=== PATIENT | male | born 1940 | race Caucasian/White ===

== ENCOUNTER 2018-08-28 17:14 | Inpatient (IN) | payer MEDICARE, BC ==
[2018-08-28] MEDS ORDERED: Sodium Chloride 0.9% 100 ML ONE (18:25)
[2018-08-28] MEDS ORDERED: Azithromycin 500 MG VIAL ONE (18:25)
[2018-08-28] MEDS ORDERED: cefTRIAXone\\ROCEPHIN 1 GM VIAL ONE (18:25)
[2018-08-28] MEDS: Sodium Chloride 0.9% 1,000 ML IV SCH (19:30)
[2018-08-28] MEDS ORDERED: Acetaminophen 325 MG TAB PO PRN (19:38)
[2018-08-28] MEDS ORDERED: Ondansetron ODT 4 MG TAB SL PRN (19:38)
[2018-08-28] MEDS ORDERED: Ondansetron PF 4 MG/2 ML Vial IVP PRN (19:38)
[2018-08-28 20:06] VITALS: BMI 28.8
[2018-08-28] MEDS ORDERED: Zolpidem Tartrate 5 MG TAB PO PRN (21:38)
[2018-08-28] MEDS ORDERED: Guaifenesin DM 100-10/5 ML UDCUP PO PRN (21:38)
[2018-08-28] MEDS ORDERED: HumaLOG 300 UNITS/3 ML VIAL SC PRN ×2 (21:46)
[2018-08-28] MEDS ORDERED: Dextrose 50% Abboject 50 ML SYRINGE SLOW IVP PRN (21:46)
[2018-08-28] MEDS ORDERED: Dextrose 5% in Water 1,000 ML IV PRN (21:46)
--- NOTE | 2018-08-28 21:54 | PDOC.EVN ---
Event Note - Event Note Event Note: H&P [id number]
--- NOTE | 2018-08-28 22:20 | HP ---
ADMITTING COMPLAINT: Cough. HISTORY OF PRESENT ILLNESS: This is a 78-year-old male, who was seen at an outside facility and transferred here to [facility] for further management and care. The patient presented to the other facility with complaints of gradual onset of cough and shortness of breath. The patient states that he had the symptoms for about 2 to 3 days. Noted that he also felt warm; however, did not have any fevers at home. The patient in the other hospital had a high temperature of 98.6 only. No range high on fevers. The patient otherwise denied any associated symptoms. No alleviating or aggravating factors noted. The patient was seen and examined. All questions answered. REVIEW OF SYSTEMS: Pertinent positives in HPI, otherwise negative. PAST MEDICAL HISTORY: Positive for coronary artery disease, hyperlipidemia, hypertension as well as hyperglycemia. The patient states that he is not aware of any surgical history. However, reviewing records, he has had a CABG. HOME MEDICATIONS: See MAR. ALLERGIES: NO KNOWN DRUG ALLERGIES. FAMILY HISTORY: Positive for diabetes and hypertension. SOCIAL HISTORY: Nondrinker and nonsmoker. PHYSICAL EXAMINATION: VITAL SIGNS: Blood pressure 117/49, pulse 92, respiratory rate of 24, O2 saturation 93% on room air. GENERAL: The patient is lying in bed. No acute discomfort. HEENT: Pupils are equal, round, and reactive to light and accommodation. Oral cavity appears dry. Poor dentition. NECK: Supple, mobile, nontender. Thyroid appreciated. RESPIRATORY: Clear to auscultation bilaterally. Left lower lobe breath sounds appear coarse, but otherwise rest of the lungs sound okay. CARDIOVASCULAR: Sinus tachycardia. S1, S2. Systolic ejection murmur appreciated. ABDOMEN: Positive bowel sounds. Soft, nontender, nondistended. EXTREMITIES: Trace edema. 2+ peripheral pulses. No cyanosis or clubbing noted. NEUROLOGIC: Cranial nerves 2 through 12 intact. Alert and oriented x3. LABORATORY DATA: CBC reviewed. BMP reviewed. CT and chest x-ray reviewed. ASSESSMENT: 1. Left lower quadrant pneumonia. 2. Leukocytosis. 3. Sepsis. 4. Lactic acidosis. 5. Hyperglycemia. 6. Transaminitis. 7. History of coronary artery disease. 8. Hypertension. 9. Diabetes. 10. Proteinuria. 11. Hyperlipidemia. PLAN: 1. At this point in time, we will admit the patient to Internal Medicine Team. Place the patient on Rocephin and azithromycin. We will obtain an echocardiogram. We will do IV fluids for now given hypotension. No signs of volume overload noted. If the patient does become volume overloaded, we will discontinue IV fluids or if the ejection fraction is low, we will discontinue IV fluids. Once the patient is eating, drinking, little bit more stable, IV fluids can be discontinued. 2. Blood cultures ordered and pending. 3. Repeat labs for tomorrow, includes CBC, BMP, liver function test as well as lactic acid panel and liver markers. 4. Sliding scale for diabetes. We will check A1c. 5. Continue home medications when med reconciliation done. In the meantime, we will start the patient on aspirin and Plavix. Hold blood pressure medications for now. Further changes in plans to be done as the patient's condition progresses. Case and plan discussed with the patient at length. He understood and agreed with this plan. He wishes to remain a full code. Job ID: [id number]
[2018-08-29] MEDS: Sodium Chloride 0.9% 1,000 ML IV SCH ×2 (02:00→11:23)
[2018-08-29 06:32] LABS: #Eosinphils 0.1 thou/uL (0.0-0.7); #Neutrophils 6.3 thou/uL (1.40-6.50); %Basophils 0.4 % (0.0-1.0); %Eosinophils 0.9 % (0.0-10.0); %Lymphocytes 11.6 % (21.0-51.0); %Monocytes 12.1 % (0.0-10.0); Hemoglobin 12.8 g/dL (14.0-18.0); Mean Corpuscular HGB CONC 33.7 g/dL (32.0-36.0); Mean Corpuscular Hemoglobin 31.5 pg (27.0-31.0); Mean Corpuscular Volume 93.4 fL (78.0-98.0); Mean Platelet Volume 7.6 fL (7.4-10.4); Platelet Count 148 thou/uL (130-400); RBC Distribution Width 12.8 % (11.5-14.5); Red Blood Cell (RBC) Count 4.08 mill/uL (4.70-6.10); White Blood Cell (WBC) Count 8.4 thou/uL (4.8-10.8)
[2018-08-29 06:39] LABS: Hemoglobin A1c 4.6 % (4.0-6.0)
[2018-08-29 06:52] LABS: ALT (SGPT) 49 U/L (8-55); AST (SGOT) 240 U/L (5-34); Alkaline Phosphatase 66 U/L (40-150); Bilirubin, Direct 0.3 mg/dL (0.1-0.3); Bilirubin, Total 0.6 mg/dL (0.2-1.2); Protein, Total 5.8 g/dL (5.8-8.1)
[2018-08-29 06:53] LABS: Anion Gap 10 mmol/L (10-20); BUN (Urea Nitrogen) 11 mg/dL (8.4-25.7); Calc. Creatinine Clearance 102 mL/min (70-130); Calcium 7.9 mg/dL (7.8-10.44); Carbon Dioxide 24 mmol/L (23-31); Chloride 107 mmol/L (98-107); Estimated GFR-MDRD Greater than 90; Glucose 85 mg/dL (83-110); Potassium 3.3 mmol/L (3.5-5.1); Sodium 138 mmol/L (136-145)
[2018-08-29] MEDS ORDERED: Prevnar 13-Val Conj/PF 0.5 ML SYRINGE IM ONE (09:00)
--- NOTE | 2018-08-29 13:11 | PDOC.EVN ---
Event Note - Event Note Event Note: ACP NOTE- pt admitted overnight.chart reviewed.Pt seen and examined and was able to tell me his name,where he is ,about his family and seems to be AAO X3. discussed his diagnosis and possible disease trajectory.he verbalized understanding discussed code status as none on chart he want to "stay alive as long as he can". Wants everything done as listed by me for resuscitation purposes .He has not appointemnted anyone i nhis family as his MPOA but reports that he has no children and but has 4 nephewes who take good care of him. he would like to appoint one of them <probably one named Jurgen after himself,as MPOA.he understands that his prognosis is fair and he would require few days of IV Abx and hence,hospital stay. Full code order enetered in [place]>will consult PCT for MPOA paper work. TOTAL TIME SPENT IN ACP DISCUSSION 17 MINUTES.
--- NOTE | 2018-08-29 14:36 | PDOC.PN ---
- Subjective Encounter Start Date: 08/29/18 Encounter Start Time: 14:34 Subjective: feels well. denies any chest pain/SOB. -: no fever/chills/cough - Objective Resuscitation Status - Order Detail: 08/29/18 11:15 Resuscitation Status Routine Resuscitation Status: FULL: Full Resuscitation Discussed with: discussed with pt in detail.see note MAR Reviewed: Yes Vital Signs & Weight: Vital Signs (12 hours) Temp Pulse Resp BP Pulse Ox 08/29/18 12:00 98.5 F 78 20 133/72 92 L 08/29/18 08:03 92 L 08/29/18 07:47 98.5 F 78 20 132/72 92 L 08/29/18 04:06 97.6 F 77 20 117/65 95 Weight Weight 195 lb 1.6 oz I&O: 08/28/18 08/29/18 08/30/18 06:59 06:59 06:59 Intake Total 1850 Balance 1850 Result Diagrams: 08/29/18 05:30 08/29/18 05:30 Additional Labs: Accuchecks 08/29/18 08/29/18 08/28/18 11:46 04:08 20:11 POC Glucose 91 89 112 H Microbiology 08/28/18 14:09 Stool - Pending Stool Occult Blood (ANNA) - Final 08/28/18 14:09 Gastric - Pending Gastric Occult Blood - Final 08/28/18 22:23 Venous blood - Right Arm Blood Culture - Preliminary Specimen has been received and culture in progress. No Growth to date. 08/28/18 22:11 Venous blood - Left Hand Blood Culture - Preliminary Specimen has been received and culture in progress. No Growth to date. Laboratory Tests 08/28/18 08/28/18 08/28/18 14:09 14:09 14:09 WBC 13.9 H Lactic Acid 3.5 H Troponin I 0.028 08/29/18 05:30 WBC 8.4 Lactic Acid Troponin I Phys Exam - Physical Examination Constitutional: NAD poor hygeine, HEENT: PERRLA, moist MMs, sclera anicteric, oral pharynx no lesions Neck: no nodes, no JVD, supple, full ROM Respiratory: no wheezing, no rales, no rhonchi, clear to auscultation bilateral Cardiovascular: RRR, no significant murmur CABG scar Gastrointestinal: soft, non-tender, no distention, positive bowel sounds Musculoskeletal: no edema, pulses present Neurological: non-focal, normal sensation, moves all 4 limbs Psychiatric: normal affect, A&O x 3 Dx/Plan (1) PNA (pneumonia) Code(s): J18.9 - PNEUMONIA, UNSPECIFIED ORGANISM Status: Acute (2) Sepsis Code(s): A41.9 - SEPSIS, UNSPECIFIED ORGANISM Status: Acute (3) Hypokalemia Code(s): E87.6 - HYPOKALEMIA Status: Acute Comment: replace and recheck (4) CAD (coronary artery disease) Code(s): I25.10 - ATHSCL HEART DISEASE OF [place] CORONARY ARTERY W/O ANG PCTRS Status: Chronic - Plan continue antibiotics, DVT proph w/SCDs cont ABx,nebs,supportive care.clinically better.Incentive spirometry -: leucocytosis improved.check Viral PCR by NAAT -: will add OT,PT.try to reconcile home meds -: Hd stable. -: am labs.ECHO pending * . Review of Systems - Review of Systems Constitutional: negative: fever, chills, sweats, weakness, malaise, other ENT: negative: Ear Pain, Ear Discharge, Nose Pain, Nose Discharge, Nose Congestion, Mouth Pain, Mouth Swelling, Throat Pain, Throat Swelling, Other Respiratory: negative: Cough, Dry, Shortness of Breath, Hemoptysis, SOB with Excertion, Pleuritic Pain, Sputum, Wheezing Cardiovascular: negative: chest pain, palpitations, orthopnea, paroxysmal nocturnal dyspnea, edema, light headedness, other Gastrointestinal: negative: Nausea, Vomiting, Abdominal Pain, Diarrhea, Constipation, Melena, Hematochezia, Other Genitourinary: negative: Dysuria, Frequency, Incontinence, Hematuria, Retention , Other Neurological: negative: Weakness, Numbness, Incoordination, Change in Speech, Confusion, Seizures, Other - Medications/Allergies Allergies/Adverse Reactions: Allergies Allergy/AdvReac Type Severity Reaction Status Date / Time No Known Drug Allergies Allergy Verified 08/29/18 13:20 Medications: Current Medications Dextrose/Water (Dextrose 50%) 25 gm SLOW IVP PRN PRN PRN Reason: Hypoglycemia Glucagon (Glucagon) 1 mg IM PRN PRN PRN Reason: Hypoglycemia Guaifenesin/Dextromethorphan (Robitussin Dm) 15 ml PO Q4H PRN PRN Reason: Cough Azithromycin 500 mg/ Sodium (Chloride) 250 mls @ 250 mls/hr IVPB Q24HR [facility] Ceftriaxone Sodium 1 gm/ (Sodium Chloride) 100 mls @ 200 mls/hr IVPB Q24HR [facility] Dextrose/Water (D5w) 1,000 mls @ 0 mls/hr IV .Q0M PRN PRN Reason: Hypoglycemia Sodium Chloride (Normal Saline 0.9%) 1,000 mls @ 50 mls/hr IV .Q20H [facility] Last Admin: 08/29/18 11:23 Dose: 1,000 mls Insulin Human Lispro (Humalog) 0 units SC .MILD SLIDING SCALE PRN PRN Reason: Mild Correctional Scale Insulin Human Lispro (Humalog) 0 units SC .BEDTIME SLIDING SC PRN PRN Reason: Bedtime Correctional Scale Sodium Chloride (Flush - Normal Saline) 10 ml IVF Q12HR [facility] Last Admin: 08/29/18 08:10 Dose: Not Given Sodium Chloride (Flush - Normal Saline) 10 ml IVF PRN PRN PRN Reason: Saline Flush Zolpidem Tartrate (Ambien) 5 mg PO HSPRN PRN PRN Reason: Insomnia
[2018-08-29] MEDS ORDERED: cefTRIAXone\\ROCEPHIN 1 GM in Sodium Chloride 0.9% 100 ML IVPB SCH (18:00)
[2018-08-29] MEDS ORDERED: Azithromycin 500 MG in Sodium Chloride 0.9% 250 ML 250 ML IVPB SCH (20:00)
[2018-08-29] MEDS: Vancomycin HCl 1.25 GM in Sodium Chloride 0.9% 250 ML 250 ML IVPB SCH (21:57)
[2018-08-30 07:42] LABS: #Eosinphils 0.1 thou/uL (0.0-0.7); #Lymphocytes 0.9 thou/uL (1.20-3.40); #Neutrophils 9.1 thou/uL (1.40-6.50); %Eosinophils 0.8 % (0.0-10.0); %Lymphocytes 7.9 % (21.0-51.0); %Monocytes 8.8 % (0.0-10.0); %Neutrophils 82.6 % (42.0-75.0); Hemoglobin 12.7 g/dL (14.0-18.0); Mean Corpuscular HGB CONC 34.2 g/dL (32.0-36.0); Mean Corpuscular Hemoglobin 31.1 pg (27.0-31.0); Mean Platelet Volume 7.5 fL (7.4-10.4); Platelet Count 143 thou/uL (130-400); RBC Distribution Width 12.6 % (11.5-14.5); Red Blood Cell (RBC) Count 4.07 mill/uL (4.70-6.10)
[2018-08-30 08:01] LABS: Anion Gap 10 mmol/L (10-20); BUN (Urea Nitrogen) 8 mg/dL (8.4-25.7); Calc. Creatinine Clearance 117 mL/min (70-130); Calcium 8.2 mg/dL (7.8-10.44); Carbon Dioxide 23 mmol/L (23-31); Chloride 102 mmol/L (98-107); Estimated GFR-MDRD Greater than 90; Glucose 94 mg/dL (83-110); Potassium 3.3 mmol/L (3.5-5.1); Sodium 132 mmol/L (136-145)
[2018-08-30] MEDS: Vancomycin HCl 1.25 GM in Sodium Chloride 0.9% 250 ML 250 ML IVPB SCH ×2 (08:24→20:43)
[2018-08-30] MEDS: Sodium Chloride 0.9% 1,000 ML IV SCH ×2 (08:25→13:30)
[2018-08-30 08:55] LABS: Magnesium 1.5 mg/dL (1.6-2.6)
[2018-08-30 09:05] LABS: Phosphorus 1.7 mg/dL (2.3-4.7)
[2018-08-30] MEDS ORDERED: Magnesium Sulfate 2 GM in Sodium Chloride 0.9% 100 ML IVPB SCH (09:30)
[2018-08-30] MEDS ORDERED: Magnesium 2 GM/50 ML 2 GM in Premix Bag 1 BAG IVPB SCH (09:45)
--- NOTE | 2018-08-30 10:47 | RAD ---
EXAM: Single view of the chest COMPARISON: None FINDINGS: Single view of the chest shows an enlarged cardiomediastinal silhouette. The patient is sta tus post sternotomy. Increased interstitial lung markings are present. There are questionable superim posed airspace opacities projecting over both lower lobes. Degenerative changes are seen in the spine . IMPRESSION: Bilateral lower lobe atelectasis versus infiltrates
[2018-08-30] MEDS: K-Phos Neutral 250 MG TAB PO SCH ×2 (12:13→17:44)
[2018-08-30] MEDS ORDERED: Loperamide HCl 2 MG CAP PO PRN (17:31)
[2018-08-30] MEDS ORDERED: Loratadine 10 MG TAB PO PRN (17:31)
[2018-08-30] MEDS ORDERED: Saccharomyces boulardii 250 MG CAP PO SCH (17:45)
--- NOTE | 2018-08-30 22:03 | PDOC.PN ---
- Subjective Encounter Start Date: 08/30/18 Encounter Start Time: 10:45 Patient seen and examined for Sepsis/Pneumonia. Feels somewhat better. No new complaints. No overnight events - Objective Resuscitation Status - Order Detail: 08/29/18 11:15 Resuscitation Status Routine Resuscitation Status: FULL: Full Resuscitation Discussed with: discussed with pt in detail.see note MAR Reviewed: Yes Vital Signs & Weight: Vital Signs (12 hours) Temp Pulse Resp BP Pulse Ox 08/30/18 18:58 98.7 F 77 20 102/68 92 L 08/30/18 16:00 98.1 F 78 20 142/76 H 91 L 08/30/18 12:54 98.4 F 71 24 H 137/71 94 L Weight Weight 195 lb 1.6 oz I&O: 08/29/18 08/30/18 08/31/18 06:59 06:59 06:59 Intake Total 1850 3025 Output Total 2600 950 Balance 1850 425 -950 Result Diagrams: 08/30/18 07:24 08/30/18 07:24 Additional Labs: Accuchecks 08/30/18 08/30/18 11:49 04:27 POC Glucose 115 H 86 Phys Exam - Physical Examination Constitutional: NAD Respiratory: no wheezing Bibasilar rales/rhonchi Cardiovascular: RRR, no rub Gastrointestinal: soft, non-tender, positive bowel sounds Musculoskeletal: no edema Dx/Plan - Plan plan discussed w/ family, PT/OT, speech therapy, out of bed/ambulate, DVT proph w/SCDs 1. Sepsis due to B/L Pneumonia ?Aspiration 2. Electrolyte abn (Hyponatremia/Hypokalemia/Hypomagnesmia/hypophosphatemia) 3. CAD 4. HTN/HLD 5. Physical deconditioning PLAN: Replace electrolytes DC Levaquin/Vancomyin Start Zosyn Cont other meds as below Microbiology 08/28/18 22:11 Venous blood - Left Hand Blood Culture - Preliminary Coagulase Neg Staphylococcus 08/28/18 15:25 Venous blood - Left Hand Blood Culture - Preliminary Coagulase Neg Staphylococcus Laboratory Tests 08/30/18 08/30/18 07:24 07:24 Sodium 132 L Potassium 3.3 L Phosphorus 1.7 L Magnesium 1.5 L Review of Systems - Review of Systems Respiratory: Cough, Dry Cardiovascular: negative: chest pain, palpitations, orthopnea, paroxysmal nocturnal dyspnea, edema, light headedness, other Gastrointestinal: negative: Nausea, Vomiting, Abdominal Pain, Diarrhea, Constipation, Melena, Hematochezia, Other - Medications/Allergies Allergies/Adverse Reactions: Allergies Allergy/AdvReac Type Severity Reaction Status Date / Time No Known Drug Allergies Allergy Verified 08/29/18 13:20 Medications: Current Medications Albuterol/Ipratropium (Duoneb) 3 ml NEB [id number] PRN PRN Reason: SOB &/or Wheezing Dextrose/Water (Dextrose 50%) 25 gm SLOW IVP PRN PRN PRN Reason: Hypoglycemia Glucagon (Glucagon) 1 mg IM PRN PRN PRN Reason: Hypoglycemia Guaifenesin/Dextromethorphan (Robitussin Dm) 15 ml PO Q4H PRN PRN Reason: Cough Dextrose/Water (D5w) 1,000 mls @ 0 mls/hr IV .Q0M PRN PRN Reason: Hypoglycemia Levofloxacin 500 mg/ Device 100 mls @ 100 mls/hr IVPB Q24HR [facility] Last Admin: 08/30/18 05:25 Dose: 100 mls Vancomycin HCl 1.25 gm/ Sodium (Chloride) 250 mls @ 166.667 mls/hr IVPB Q12HR [facility] Last Admin: 08/30/18 20:43 Dose: 250 mls Sodium Chloride (Normal Saline 0.9%) 1,000 mls @ 30 mls/hr IV .Q24H [facility] Last Admin: 08/30/18 13:30 Dose: 1,000 mls Loperamide HCl (Imodium) 2 mg PO PRN PRN PRN Reason: Diarrhea/Loose Stools Loratadine (Claritin) 10 mg PO DAILYPRN PRN PRN Reason: Sinus Symptoms Miscellaneous Medication (Pharmacy To Dose) 1 each IVPB PRN PRN PRN Reason: Pharmacy to dose Phosphorus (Kphos Neutral) 250 mg PO TID-[facility] Last Admin: 08/30/18 17:44 Dose: 250 mg Saccharomyces Boulardii (Florastor) 250 mg PO DAILY [facility] Sodium Chloride (Flush - Normal Saline) 10 ml IVF Q12HR [facility] Last Admin: 08/30/18 20:44 Dose: Not Given Sodium Chloride (Flush - Normal Saline) 10 ml IVF PRN PRN PRN Reason: Saline Flush
[2018-08-30] MEDS: Piperacillin/Tazobactam 3.375 GM in Sodium Chloride 0.9% 100 ML IVPB SCH (23:18)
[2018-08-31 05:00] LABS: #Eosinphils 0.3 thou/uL (0.0-0.7); #Lymphocytes 1.1 thou/uL (1.20-3.40); #Neutrophils 8.9 thou/uL (1.40-6.50); %Eosinophils 2.5 % (0.0-10.0); %Lymphocytes 9.9 % (21.0-51.0); %Monocytes 9.1 % (0.0-10.0); %Neutrophils 78.5 % (42.0-75.0); Hemoglobin 13.5 g/dL (14.0-18.0); Mean Corpuscular HGB CONC 34.7 g/dL (32.0-36.0); Mean Corpuscular Hemoglobin 31.5 pg (27.0-31.0); Mean Corpuscular Volume 90.9 fL (78.0-98.0); Mean Platelet Volume 7.6 fL (7.4-10.4); Platelet Count 155 thou/uL (130-400); RBC Distribution Width 12.3 % (11.5-14.5); Red Blood Cell (RBC) Count 4.27 mill/uL (4.70-6.10); White Blood Cell (WBC) Count 11.3 thou/uL (4.8-10.8)
[2018-08-31] MEDS: Piperacillin/Tazobactam 3.375 GM in Sodium Chloride 0.9% 100 ML IVPB SCH ×4 (05:09→21:14)
[2018-08-31 05:24] LABS: ALT (SGPT) 44 U/L (8-55); AST (SGOT) 127 U/L (5-34); Alkaline Phosphatase 70 U/L (40-150); Anion Gap 13 mmol/L (10-20); BUN (Urea Nitrogen) 7 mg/dL (8.4-25.7); Bilirubin, Total 1.5 mg/dL (0.2-1.2); Calc. Creatinine Clearance 98 mL/min (70-130); Calcium 8.3 mg/dL (7.8-10.44); Carbon Dioxide 26 mmol/L (23-31); Chloride 97 mmol/L (98-107); Estimated GFR-MDRD Greater than 90; Globulin 3.7 g/dL (2.4-3.5); Glucose 94 mg/dL (83-110); Magnesium 2.3 mg/dL (1.6-2.6); Phosphorus 2.3 mg/dL (2.3-4.7); Potassium 3.4 mmol/L (3.5-5.1); Protein, Total 6.7 g/dL (5.8-8.1); Sodium 133 mmol/L (136-145)
[2018-08-31] MEDS: K-Phos Neutral 250 MG TAB PO SCH ×3 (07:55→16:30)
[2018-08-31] MEDS: Saccharomyces boulardii 250 MG CAP PO SCH (07:56)
[2018-08-31] MEDS: Sodium Chloride 0.9% 1,000 ML IV SCH (11:06)
[2018-08-31] MEDS ORDERED: Ondansetron ODT 4 MG TAB PO PRN (20:24)
[2018-08-31] MEDS ORDERED: Acetaminophen 500 MG TAB PO PRN ×2 (20:24→20:27)
[2018-08-31] MEDS ORDERED: Ondansetron PF 4 MG/2 ML Vial IVP PRN (20:24)
--- NOTE | 2018-08-31 21:58 | PDOC.PN ---
- Subjective Encounter Start Date: 08/31/18 Encounter Start Time: 12:30 Patient seen and examined for Sepsis. Feels gen weak. No new complaints. No overnight events - Objective Resuscitation Status - Order Detail: 08/29/18 11:15 Resuscitation Status Routine Resuscitation Status: FULL: Full Resuscitation Discussed with: discussed with pt in detail.see note MAR Reviewed: Yes Vital Signs & Weight: Vital Signs (12 hours) Temp Pulse Resp BP Pulse Ox 08/31/18 19:50 100.5 F H 76 18 138/80 93 L Weight Weight 195 lb 1.6 oz I&O: 08/30/18 08/31/18 09/01/18 06:59 06:59 06:59 Intake Total 3025 1000 660 Output Total 2600 1900 950 Balance 488 -642 -336 Result Diagrams: 08/31/18 04:34 08/31/18 04:34 Phys Exam - Physical Examination Constitutional: NAD Respiratory: no wheezing Bibasilar rales Cardiovascular: RRR, no rub Gastrointestinal: soft, non-tender, positive bowel sounds Musculoskeletal: no edema Neurological: non-focal, moves all 4 limbs Dx/Plan - Plan DVT proph w/SCDs 1. Gen weaknessSepsis due to B/L Pneumonia ?Aspiration 2. Electrolyte abn (Hyponatremia/Hypokalemia/Hypomagnesmia/hypophosphatemia) 3. CAD 4. HTN/HLD 5. Physical deconditioning PLAN: AM labs Add Doxycycline Cont Zosyn Cont IVF at KVO Start Zosyn Cont other meds as below SNF Eval Review of Systems - Review of Systems Respiratory: Cough, Dry. negative: Shortness of Breath, Hemoptysis, SOB with Excertion, Pleuritic Pain, Sputum, Wheezing Cardiovascular: negative: chest pain, palpitations, orthopnea, paroxysmal nocturnal dyspnea, edema, light headedness, other - Medications/Allergies Allergies/Adverse Reactions: Allergies Allergy/AdvReac Type Severity Reaction Status Date / Time No Known Drug Allergies Allergy Verified 08/29/18 13:20 Medications: Current Medications Acetaminophen (Tylenol) 500 mg PO Q6H PRN PRN Reason: Fever > 101 Last Admin: 08/31/18 21:14 Dose: 500 mg Albuterol/Ipratropium (Duoneb) 3 ml NEB [id number] PRN PRN Reason: SOB &/or Wheezing Dextrose/Water (Dextrose 50%) 25 gm SLOW IVP PRN PRN PRN Reason: Hypoglycemia Doxycycline Hyclate (Vibramycin) 100 mg PO BID [facility] Glucagon (Glucagon) 1 mg IM PRN PRN PRN Reason: Hypoglycemia Guaifenesin/Dextromethorphan (Robitussin Dm) 15 ml PO Q4H PRN PRN Reason: Cough Dextrose/Water (D5w) 1,000 mls @ 0 mls/hr IV .Q0M PRN PRN Reason: Hypoglycemia Sodium Chloride (Normal Saline 0.9%) 1,000 mls @ 30 mls/hr IV .Q24H [facility] Last Admin: 08/31/18 11:06 Dose: Not Given Piperacillin Sod/Tazobactam (Sod 3.375 gm/ Sodium Chloride) 100 mls @ 200 mls/ hr IVPB Q6H [facility] Last Admin: 08/31/18 21:14 Dose: 100 mls Loperamide HCl (Imodium) 2 mg PO PRN PRN PRN Reason: Diarrhea/Loose Stools Loratadine (Claritin) 10 mg PO DAILYPRN PRN PRN Reason: Sinus Symptoms Miscellaneous Medication (Pharmacy To Dose) 1 each IVPB PRN PRN PRN Reason: Pharmacy to dose Ondansetron HCl (Zofran Odt) 4 mg PO Q6H PRN PRN Reason: Nausea/Vomiting Ondansetron HCl (Zofran) 4 mg IVP Q6H PRN PRN Reason: Nausea/Vomiting Last Admin: 08/31/18 21:14 Dose: 4 mg Pantoprazole Sodium (Protonix) 40 mg PO DAILY [facility] Last Admin: 08/31/18 07:56 Dose: 40 mg Phosphorus (Kphos Neutral) 250 mg PO TID-[facility] Last Admin: 08/31/18 16:30 Dose: 250 mg Potassium Chloride (Klor-Con) 20 meq PO QAM-[facility] Last Admin: 08/31/18 07:55 Dose: 20 meq Saccharomyces Boulardii (Florastor) 250 mg PO DAILY [facility] Last Admin: 08/31/18 07:56 Dose: 250 mg Sodium Chloride (Flush - Normal Saline) 10 ml IVF Q12HR [facility] Last Admin: 08/31/18 21:14 Dose: 10 ml Sodium Chloride (Flush - Normal Saline) 10 ml IVF PRN PRN PRN Reason: Saline Flush
[2018-08-31] MEDS ORDERED: Doxycycline 100 MG CAP PO SCH (22:00)
[2018-09-01 00:26] LABS: Legionella Urinary Ag Negative (Negative); Strep pneumo Urine Ag NEGATIVE (NEGATIVE)
[2018-09-01] MEDS: Sodium Chloride 0.9% 1,000 ML IV SCH (04:05)
[2018-09-01] MEDS: Piperacillin/Tazobactam 3.375 GM in Sodium Chloride 0.9% 100 ML IVPB SCH ×3 (04:05→15:18)
[2018-09-01 06:16] LABS: #Eosinphils 0.7 thou/uL (0.0-0.7); #Monocytes 0.9 thou/uL (0.11-0.59); #Neutrophils 6.8 thou/uL (1.40-6.50); %Basophils 0.3 % (0.0-1.0); %Eosinophils 7.7 % (0.0-10.0); %Lymphocytes 10.8 % (21.0-51.0); %Monocytes 9.4 % (0.0-10.0); %Neutrophils 71.8 % (42.0-75.0); Hemoglobin 13.3 g/dL (14.0-18.0); Mean Corpuscular HGB CONC 33.8 g/dL (32.0-36.0); Mean Corpuscular Hemoglobin 30.2 pg (27.0-31.0); Mean Corpuscular Volume 89.5 fL (78.0-98.0); Mean Platelet Volume 8.5 fL (7.4-10.4); Platelet Count 125 thou/uL (130-400); RBC Distribution Width 12.5 % (11.5-14.5); Red Blood Cell (RBC) Count 4.39 mill/uL (4.70-6.10); White Blood Cell (WBC) Count 9.5 thou/uL (4.8-10.8)
[2018-09-01 06:29] LABS: ALT (SGPT) 42 U/L (8-55); AST (SGOT) 85 U/L (5-34); Albumin 2.8 g/dL (3.4-4.8); Alkaline Phosphatase 81 U/L (40-150); Anion Gap 11 mmol/L (10-20); BUN (Urea Nitrogen) 6 mg/dL (8.4-25.7); Bilirubin, Total 1.3 mg/dL (0.2-1.2); Calc. Creatinine Clearance 105 mL/min (70-130); Calcium 8.2 mg/dL (7.8-10.44); Carbon Dioxide 29 mmol/L (23-31); Chloride 99 mmol/L (98-107); Estimated GFR-MDRD Greater than 90; Globulin 3.3 g/dL (2.4-3.5); Glucose 83 mg/dL (83-110); Magnesium 2.3 mg/dL (1.6-2.6); Phosphorus 3.1 mg/dL (2.3-4.7); Potassium 2.8 mmol/L (3.5-5.1); Protein, Total 6.1 g/dL (5.8-8.1); Sodium 136 mmol/L (136-145)
[2018-09-01] MEDS ORDERED: Potassium Chloride 40 MEQ in Premix Bag 1 BAG IVPB SCH (07:00)
[2018-09-01] MEDS ORDERED: Potassium Chloride 20 MEQ TAB PO SCH (07:00)
[2018-09-01] MEDS: Doxycycline 100 MG CAP PO SCH ×2 (07:44→20:07)
[2018-09-01] MEDS: K-Phos Neutral 250 MG TAB PO SCH ×3 (07:44→17:08)
[2018-09-01] MEDS: Saccharomyces boulardii 250 MG CAP PO SCH (07:44)
[2018-09-01] MEDS: NS 0.9% w/ 40 MEQ KCL 1,000 ML IV SCH (08:37)
[2018-09-01] MEDS: Potassium Chloride 20 MEQ in Premix Bag 1 BAG IVPB SCH ×2 (08:37→17:08)
[2018-09-01] MEDS ORDERED: Vancomycin HCl 1 GM in Premix Bag 1 BAG IVPB SCH (10:45)
[2018-09-01] MEDS ORDERED: Vancomycin HCl 1.25 GM in Sodium Chloride 0.9% 250 ML 250 ML IVPB SCH ×2 (12:00→18:00)
--- NOTE | 2018-09-01 18:15 | CON ---
DATE OF CONSULTATION: REASON FOR CONSULTATION: Bacteremia, possible pneumonia, diarrhea. HISTORY OF PRESENT ILLNESS: A 78-year-old patient who has a history of coronary artery disease, hyperlipidemia and hypertension, and has been presenting symptoms of coughing spells for the past few days associated with dyspnea but no sputum production. He was seen at the emergency room and then transferred from [facility] and admitted. Initial findings included BP 126/66, pulse 98, respirations 23, temperature 98.6, and O2 saturation 96%. His neck appears with normal range of motion. His lungs had inspiratory crackles at the bases, both right and left side, but no wheezing. S1, S2. Regular rate without murmurs. Abdomen is soft and nontender. Initial laboratory results included white cell count 8.4 with 75% neutrophils, platelets 148 with hemoglobin 12.8. Sodium 132, creatinine 0.67 with bilirubin 1.5, AST 127, ALT 44, alkaline phosphatase 70, albumin 3.0. Legionella pneumophila and strep pneumoniae antigen were negative. Two sets of blood cultures have yielded Staphylococcus warneri. One out of two sets were positive. Two more sets were for some reason submitted as well, the same day just a few hours later. We have each two sets, only one returned Staphylococcus warneri. The patient has been treated with doxycycline and Zosyn. He is currently feeling better. He denies any headaches. No visual symptoms. He has quite a bit of cognitive impairment although he was oriented to place and time, but he could not recall things very well and could not tell me the sequence of events very well or the time course of his illness. No neck pain or back pain. The cough has improved. No sputum production. No abdominal pain. He does not have diarrhea and is voiding with an indwelling Elaine catheter. I's and O's have been slightly positive. Pupils are equal. Sclerae are white. Skin exam shows milder hyperemia in the perianal area. He has scratch boland in the left thigh and hyperkeratosis at the heel skin region. Pupils are equal. Neck supple. Lungs with symmetric air entry, few crackles at the bases, particularly right side. S1 and S2 with diminished heart sounds. Soft aortic murmur with regular rate. Abdomen is soft, nondistended, nontender. No ascites. No bladder distention. No organomegaly. The patient has evidence of osteoarthrosis in knees and ankles. He is able to move all extremities and no edema in lower extremities noted. He is awake, knows his name. He knew where he was in [facility] in [place] and knew the year and the month. LABORATORY DATA: The followup labs showed white cell count up to 11.3 and now down to 9.5, hemoglobin 13, platelets 125, and 71% neutrophils. Sodium 136, potassium 2.8, bilirubin 1.3, AST 85. Microbiology: We have also C diff toxin and antigen negative. Respiratory panel PCR negative as well. Chest x-ray revealed bilateral lower lobe atelectasis with possible infiltrates. Abdomen and pelvis CT which was done showed left lower lobe airspace disease consistent with pneumonia. Nothing in the abdominal area of significance. ASSESSMENT: 1. Hypertension. 2. Type 2 diabetes mellitus. 3. Cognitive dysfunction. 4. Coronary artery disease. 5. Cough with abnormal lung findings on chest x-ray and CT scan. DISCUSSION: Differential diagnosis includes community-acquired pneumonia with usual pathogens. Possibility of eleuterio aspiration is considered and patient would merit swallowing study. Lately the role of anaerobes is being somewhat questioned in the role of aspiration pneumonias. Gram-negative richar certainly have a role. I would probably continue treatment with Zosyn and eventually transition to an oral antimicrobial for continuation of therapy in the outpatient setting. Followup the x-rays to resolution of this abnormality. Malignancy, autoimmune syndrome, vasculitis, less likely the possibility of development of empyema will have to be considered in the future. Again, Speech Therapy evaluation. Job ID: [id number] MTDD
[2018-09-01] MEDS: Vancomycin HCl 1.25 GM in Sodium Chloride 0.9% 250 ML 250 ML IVPB SCH (21:09)
--- NOTE | 2018-09-01 22:36 | PDOC.PN ---
- Subjective Encounter Start Date: 09/01/18 Encounter Start Time: 11:30 Patient seen and examined for Sepsis/Bacteremia. Feels better. No new complaints. No overnight events - Objective Resuscitation Status - Order Detail: 08/29/18 11:15 Resuscitation Status Routine Resuscitation Status: FULL: Full Resuscitation Discussed with: discussed with pt in detail.see note MAR Reviewed: Yes Vital Signs & Weight: Vital Signs (12 hours) Temp Pulse Resp BP Pulse Ox 09/01/18 20:10 93 L 09/01/18 20:05 98.6 F 83 16 146/78 H 92 L Weight Weight 195 lb 1.6 oz I&O: 08/31/18 09/01/18 09/02/18 06:59 06:59 06:59 Intake Total 1000 1510 1100 Output Total 1900 1250 950 Balance -900 260 150 Result Diagrams: 09/01/18 06:03 09/01/18 06:03 Phys Exam - Physical Examination Constitutional: NAD Respiratory: no wheezing Bibasilar rales/rhonchi Cardiovascular: RRR, no rub Gastrointestinal: soft, non-tender, positive bowel sounds Musculoskeletal: no edema Dx/Plan - Plan DVT proph w/SCDs 1. Gen weakness/Sepsis due to B/L Pneumonia ?Aspiration/Staph bacteremia 2. Electrolyte abn (Hyponatremia/Hypokalemia/Hypomagnesmia/hypophosphatemia) 3. CAD 4. HTN/HLD 5. Physical deconditioning 6. Thrombocytopenia PLAN: Replace Potassium Cont current Atbx as below Consult ID Cont other meds as below AM labs Monitor Platelets Review of Systems - Review of Systems Respiratory: Cough, Dry. negative: Shortness of Breath, Hemoptysis, SOB with Excertion, Pleuritic Pain, Sputum, Wheezing Cardiovascular: negative: chest pain, palpitations, orthopnea, paroxysmal nocturnal dyspnea, edema, light headedness, other Gastrointestinal: negative: Nausea, Vomiting, Abdominal Pain, Diarrhea, Constipation, Melena, Hematochezia, Other - Medications/Allergies Allergies/Adverse Reactions: Allergies Allergy/AdvReac Type Severity Reaction Status Date / Time No Known Drug Allergies Allergy Verified 08/29/18 13:20 Medications: Current Medications Acetaminophen (Tylenol) 500 mg PO Q6H PRN PRN Reason: Fever > 101 Last Admin: 08/31/18 21:14 Dose: 500 mg Albuterol/Ipratropium (Duoneb) 3 ml NEB [id number] PRN PRN Reason: SOB &/or Wheezing Dextrose/Water (Dextrose 50%) 25 gm SLOW IVP PRN PRN PRN Reason: Hypoglycemia Doxycycline Hyclate (Vibramycin) 100 mg PO BID [facility] Last Admin: 09/01/18 20:07 Dose: 100 mg Glucagon (Glucagon) 1 mg IM PRN PRN PRN Reason: Hypoglycemia Guaifenesin/Dextromethorphan (Robitussin Dm) 15 ml PO Q4H PRN PRN Reason: Cough Dextrose/Water (D5w) 1,000 mls @ 0 mls/hr IV .Q0M PRN PRN Reason: Hypoglycemia Potassium Chloride/Sodium Chloride (Ns 0.9% W/ 40 Meq Kcl) 1,000 mls @ 50 mls/ hr IV .Q20H [facility] Last Admin: 09/01/18 08:37 Dose: 1,000 mls Vancomycin HCl 1.25 gm/ Sodium (Chloride) 250 mls @ 166.667 mls/hr IVPB 1000, 2200 [facility] Last Admin: 09/01/18 21:09 Dose: 250 mls Piperacillin Sod/Tazobactam (Sod 3.375 gm/ Sodium Chloride) 100 mls @ 200 mls/ hr IVPB Q6HR [facility] Loperamide HCl (Imodium) 2 mg PO PRN PRN PRN Reason: Diarrhea/Loose Stools Loratadine (Claritin) 10 mg PO DAILYPRN PRN PRN Reason: Sinus Symptoms Miscellaneous Medication (Pharmacy To Dose) 1 each IVPB .VANC/ABX PRN PRN Reason: Pharmacy to dose Ondansetron HCl (Zofran Odt) 4 mg PO Q6H PRN PRN Reason: Nausea/Vomiting Ondansetron HCl (Zofran) 4 mg IVP Q6H PRN PRN Reason: Nausea/Vomiting Last Admin: 08/31/18 21:14 Dose: 4 mg Pantoprazole Sodium (Protonix) 40 mg PO DAILY [facility] Last Admin: 09/01/18 07:44 Dose: 40 mg Phosphorus (Kphos Neutral) 250 mg PO TID-[facility] Last Admin: 09/01/18 17:08 Dose: 250 mg Potassium Chloride (Klor-Con) 20 meq PO QID-[facility] Last Admin: 09/01/18 20:07 Dose: 20 meq Saccharomyces Boulardii (Florastor) 250 mg PO DAILY [facility] Last Admin: 09/01/18 07:44 Dose: 250 mg Sodium Chloride (Flush - Normal Saline) 10 ml IVF Q12HR [facility] Last Admin: 09/01/18 20:07 Dose: 10 ml Sodium Chloride (Flush - Normal Saline) 10 ml IVF PRN PRN PRN Reason: Saline Flush
[2018-09-02] MEDS: Piperacillin/Tazobactam 3.375 GM in Sodium Chloride 0.9% 100 ML IVPB SCH ×4 (00:36→17:06)
[2018-09-02] MEDS: K-Phos Neutral 250 MG TAB PO SCH ×3 (08:42→17:06)
[2018-09-02] MEDS: Saccharomyces boulardii 250 MG CAP PO SCH (08:43)
[2018-09-02] MEDS: NS 0.9% w/ 40 MEQ KCL 1,000 ML IV SCH (08:43)
[2018-09-02] MEDS: Doxycycline 100 MG CAP PO SCH ×2 (08:43→19:44)
[2018-09-02 11:20] LABS: Hemoglobin 13.7 g/dL (14.0-18.0); Mean Corpuscular HGB CONC 34.2 g/dL (32.0-36.0); Mean Corpuscular Hemoglobin 31.3 pg (27.0-31.0); Mean Corpuscular Volume 91.5 fL (78.0-98.0); Mean Platelet Volume 7.3 fL (7.4-10.4); Platelet Count 204 thou/uL (130-400); RBC Distribution Width 12.5 % (11.5-14.5); Red Blood Cell (RBC) Count 4.38 mill/uL (4.70-6.10); White Blood Cell (WBC) Count 10.4 thou/uL (4.8-10.8)
[2018-09-02 11:24] LABS: INR-International Normal Ratio 1.1; PTT 34.2 SEC (22.9-36.1); Prothrombin Time 13.8 SEC (12.0-14.7)
[2018-09-02 11:36] LABS: Band 5 % (5-11); Eosinophils 11 % (0-10); Lymphocytes 10 % (21-51); MDiff Complete? YES; Monocytes 6 % (0-10); Neutrophil 67 % (42-75); Platelet Morphology Comment Appears Adequate; Polychromasia SLIGHT = 2-3 cells (100X) (0-2/hpf)
[2018-09-02 11:44] LABS: ALT (SGPT) 45 U/L (8-55); AST (SGOT) 63 U/L (5-34); Albumin 2.9 g/dL (3.4-4.8); Alkaline Phosphatase 104 U/L (40-150); Anion Gap 10 mmol/L (10-20); BUN (Urea Nitrogen) 9 mg/dL (8.4-25.7); Bilirubin, Total 0.9 mg/dL (0.2-1.2); Calc. Creatinine Clearance 105 mL/min (70-130); Calcium 8.7 mg/dL (7.8-10.44); Carbon Dioxide 26 mmol/L (23-31); Chloride 100 mmol/L (98-107); Estimated GFR-MDRD Greater than 90; Globulin 3.4 g/dL (2.4-3.5); Glucose 145 mg/dL (83-110); Magnesium 1.6 mg/dL (1.6-2.6); Phosphorus 2.4 mg/dL (2.3-4.7); Potassium 3.8 mmol/L (3.5-5.1); Protein, Total 6.3 g/dL (5.8-8.1); Sodium 132 mmol/L (136-145)
[2018-09-02] MEDS: Vancomycin HCl 1.25 GM in Sodium Chloride 0.9% 250 ML 250 ML IVPB SCH ×2 (11:51→19:44)
--- NOTE | 2018-09-02 14:12 | RAD ---
FModified barium swallow with speech therapist: 09/02/2018 HISTORY: 78-year-old male with dysphagia, unspecified and feeding difficulties. FINDINGS: Multiple episodes of consistent penetration with thin liquids. At least one episode of penetration wi th nectar. No cough. No aspiration seen. No penetration with thick consistency or mechanical solids. Delayed spillage into vallecula without spontaneous repeat swallow. After prompting second swallow, t here is consistently delayed swallow. Somewhat decreased laryngeal elevation. See complete report by speech therapist. IMPRESSION: Mild to moderate pharyngeal dysphagia, including penetration.
--- NOTE | 2018-09-02 17:29 | PRG ---
DATE OF SERVICE: 09/02/2018 SUBJECTIVE: Mr. Bender is awake. He knows he is in the hospital, but it took a while for him to give me the answers regarding the date. He feels that everything is back to normal. He denies any symptoms right now. OBJECTIVE: VITAL SIGNS: He did have a 100.5 yesterday, but now he is 98 to 99. Other vital signs are not remarkable. GENERAL: He is awake, alert, and oriented. HEENT: Ocular movements conjugate. Oral cavity moist. LUNGS: He still has quite a bit of rhonchi in the lung dodson, right and left side. HEART: S1 and S2 regular rate. ABDOMEN: Soft and not distended. EXTREMITIES: Moves extremities equally. LABORATORY DATA: White cell count 10.4, hemoglobin 13.7. Chemistry was not particularly remarkable. Albumin 2.9. Microbiology with Staph warneri which is felt to represent a contamination of the sample. ASSESSMENT AND PLAN: The patient had a modified speech swallow test with mild to moderate pharyngeal dysphagia including penetration. I think that kind of documents the aspiration which led to the patient's current decompensation which resulted in his admission. I think he could eventually be transitioned to oral antimicrobial therapy for discharge planning, may be a quinolone, but modification of his diet to be recommended by speech therapist. Job ID: [id number]
--- NOTE | 2018-09-02 22:53 | PDOC.PN ---
- Subjective Encounter Start Date: 09/02/18 Encounter Start Time: 13:30 Patient seen and examined for Aspiration Pneumonia. No new complaints. No overnight events - Objective Resuscitation Status - Order Detail: 08/29/18 11:15 Resuscitation Status Routine Resuscitation Status: FULL: Full Resuscitation Discussed with: discussed with pt in detail.see note MAR Reviewed: Yes Vital Signs & Weight: Vital Signs (12 hours) Temp Pulse Resp BP Pulse Ox 09/02/18 20:00 96 09/02/18 19:51 98 F 70 21 H 157/79 H 96 Weight Weight 195 lb 1.6 oz I&O: 09/01/18 09/02/18 09/03/18 06:59 06:59 06:59 Intake Total 1510 2100 840 Output Total 1250 2750 300 Balance 260 -650 540 Result Diagrams: 09/03/18 05:54 09/03/18 05:54 Additional Labs: Accuchecks 09/02/18 19:51 POC Glucose 105 Phys Exam - Physical Examination Constitutional: NAD Respiratory: no wheezing, no rhonchi Bibasilar rales Cardiovascular: RRR, no rub Gastrointestinal: soft, non-tender, positive bowel sounds Musculoskeletal: no edema Neurological: moves all 4 limbs Dx/Plan - Plan DVT proph w/SCDs 1. Gen weakness/Sepsis due to B/L Pneumonia ?Aspiration/Staph bacteremia 2. Electrolyte abn (Hyponatremia/Hypokalemia/Hypomagnesmia/hypophosphatemia) 3. CAD 4. HTN/HLD 5. Physical deconditioning 6. Thrombocytopenia 7. Abn LFTs prob due to Sepsis - improving PLAN: Cont Vancomycin/Zosyn as below Modified Barium swallow today Cont other meds as below AM labs Review of Systems - Review of Systems Respiratory: Cough, Dry. negative: Shortness of Breath, Hemoptysis, SOB with Excertion, Pleuritic Pain, Sputum, Wheezing Cardiovascular: negative: chest pain, palpitations, orthopnea, paroxysmal nocturnal dyspnea, edema, light headedness, other Gastrointestinal: negative: Nausea, Vomiting, Abdominal Pain, Diarrhea, Constipation, Melena, Hematochezia, Other - Medications/Allergies Allergies/Adverse Reactions: Allergies Allergy/AdvReac Type Severity Reaction Status Date / Time No Known Drug Allergies Allergy Verified 08/29/18 13:20 Medications: Current Medications Acetaminophen (Tylenol) 500 mg PO Q6H PRN PRN Reason: Fever > 101 Last Admin: 08/31/18 21:14 Dose: 500 mg Albuterol/Ipratropium (Duoneb) 3 ml NEB [id number] PRN PRN Reason: SOB &/or Wheezing Dextrose/Water (Dextrose 50%) 25 gm SLOW IVP PRN PRN PRN Reason: Hypoglycemia Doxycycline Hyclate (Vibramycin) 100 mg PO BID [facility] Last Admin: 09/02/18 19:44 Dose: 100 mg Glucagon (Glucagon) 1 mg IM PRN PRN PRN Reason: Hypoglycemia Guaifenesin/Dextromethorphan (Robitussin Dm) 15 ml PO Q4H PRN PRN Reason: Cough Dextrose/Water (D5w) 1,000 mls @ 0 mls/hr IV .Q0M PRN PRN Reason: Hypoglycemia Potassium Chloride/Sodium Chloride (Ns 0.9% W/ 40 Meq Kcl) 1,000 mls @ 50 mls/ hr IV .Q20H [facility] Last Admin: 09/02/18 08:43 Dose: Not Given Vancomycin HCl 1.25 gm/ Sodium (Chloride) 250 mls @ 166.667 mls/hr IVPB 1000, 2200 [facility] Last Admin: 09/02/18 19:44 Dose: 250 mls Piperacillin Sod/Tazobactam (Sod 3.375 gm/ Sodium Chloride) 100 mls @ 200 mls/ hr IVPB Q6HR [facility] Last Admin: 09/02/18 17:06 Dose: 100 mls Loperamide HCl (Imodium) 2 mg PO PRN PRN PRN Reason: Diarrhea/Loose Stools Loratadine (Claritin) 10 mg PO DAILYPRN PRN PRN Reason: Sinus Symptoms Miscellaneous Medication (Pharmacy To Dose) 1 each IVPB .VANC/ABX PRN PRN Reason: Pharmacy to dose Ondansetron HCl (Zofran Odt) 4 mg PO Q6H PRN PRN Reason: Nausea/Vomiting Ondansetron HCl (Zofran) 4 mg IVP Q6H PRN PRN Reason: Nausea/Vomiting Last Admin: 08/31/18 21:14 Dose: 4 mg Pantoprazole Sodium (Protonix) 40 mg PO DAILY [facility] Last Admin: 09/02/18 08:43 Dose: 40 mg Phosphorus (Kphos Neutral) 250 mg PO TID-[facility] Last Admin: 09/02/18 17:06 Dose: 250 mg Saccharomyces Boulardii (Florastor) 250 mg PO DAILY [facility] Last Admin: 09/02/18 08:43 Dose: 250 mg Sodium Chloride (Flush - Normal Saline) 10 ml IVF Q12HR [facility] Last Admin: 09/02/18 19:45 Dose: Not Given Sodium Chloride (Flush - Normal Saline) 10 ml IVF PRN PRN PRN Reason: Saline Flush
[2018-09-03] MEDS: Piperacillin/Tazobactam 3.375 GM in Sodium Chloride 0.9% 100 ML IVPB SCH ×5 (00:29→23:19)
[2018-09-03] MEDS: NS 0.9% w/ 40 MEQ KCL 1,000 ML IV SCH ×2 (05:10→05:44)
[2018-09-03 06:01] LABS: Vancomycin, Trough 18.2 ug/mL
[2018-09-03 06:36] LABS: #Basophils 0.1 thou/uL (0.0-0.2); #Lymphocytes 1.3 thou/uL (1.20-3.40); #Neutrophils 9.2 thou/uL (1.40-6.50); %Basophils 0.6 % (0.0-1.0); %Lymphocytes 10.3 % (21.0-51.0); %Neutrophils 73.2 % (42.0-75.0); Hemoglobin 14.1 g/dL (14.0-18.0); Mean Corpuscular HGB CONC 34.3 g/dL (32.0-36.0); Mean Corpuscular Hemoglobin 31.6 pg (27.0-31.0); Mean Corpuscular Volume 92.1 fL (78.0-98.0); Mean Platelet Volume 7.7 fL (7.4-10.4); Platelet Count 228 thou/uL (130-400); RBC Distribution Width 12.5 % (11.5-14.5); Red Blood Cell (RBC) Count 4.45 mill/uL (4.70-6.10); White Blood Cell (WBC) Count 12.5 thou/uL (4.8-10.8)
[2018-09-03 07:07] LABS: ALT (SGPT) 54 U/L (8-55); AST (SGOT) 58 U/L (5-34); Albumin 3.1 g/dL (3.4-4.8); Alkaline Phosphatase 120 U/L (40-150); Anion Gap 12 mmol/L (10-20); BUN (Urea Nitrogen) 8 mg/dL (8.4-25.7); Bilirubin, Total 1.1 mg/dL (0.2-1.2); Calc. Creatinine Clearance 106 mL/min (70-130); Calcium 8.7 mg/dL (7.8-10.44); Carbon Dioxide 23 mmol/L (23-31); Chloride 102 mmol/L (98-107); Estimated GFR-MDRD Greater than 90; Globulin 3.5 g/dL (2.4-3.5); Glucose 88 mg/dL (83-110); Magnesium 1.9 mg/dL (1.6-2.6); Phosphorus 2.9 mg/dL (2.3-4.7); Potassium 3.6 mmol/L (3.5-5.1); Protein, Total 6.6 g/dL (5.8-8.1); Sodium 133 mmol/L (136-145)
[2018-09-03] MEDS: Saccharomyces boulardii 250 MG CAP PO SCH (08:01)
[2018-09-03] MEDS: Doxycycline 100 MG CAP PO SCH (08:01)
[2018-09-03] MEDS: K-Phos Neutral 250 MG TAB PO SCH (08:01)
[2018-09-03] MEDS: Enoxaparin Sodium 40 MG/0.4 ML SYRINGE SC SCH (09:08)
[2018-09-03] MEDS: Vancomycin HCl 1.25 GM in Sodium Chloride 0.9% 250 ML 250 ML IVPB SCH ×2 (10:06→19:41)
--- NOTE | 2018-09-03 22:24 | PDOC.PN ---
- Subjective Encounter Start Date: 09/03/18 Encounter Start Time: 13:00 Patient seen and examined for Sepsis/Pneumonia. Feels better. Dry cough + No new complaints. No overnight events - Objective Resuscitation Status - Order Detail: 08/29/18 11:15 Resuscitation Status Routine Resuscitation Status: FULL: Full Resuscitation Discussed with: discussed with pt in detail.see note MAR Reviewed: Yes Vital Signs & Weight: Vital Signs (12 hours) Temp Pulse Resp BP Pulse Ox 09/03/18 20:00 94 L 09/03/18 19:02 99.1 F 79 20 126/85 94 L 09/03/18 11:32 20 Weight Weight 195 lb 1.6 oz I&O: 09/02/18 09/03/18 09/04/18 06:59 06:59 06:59 Intake Total 2100 840 720 Output Total 2750 300 1800 Balance -650 540 -1080 Result Diagrams: 09/03/18 05:54 09/03/18 05:54 Additional Labs: Accuchecks 09/03/18 09/03/18 09/03/18 19:06 16:17 11:09 POC Glucose 99 131 H 129 H 09/03/18 04:23 POC Glucose 91 Phys Exam - Physical Examination Constitutional: NAD Respiratory: no wheezing, no rhonchi Bibasilar rales Cardiovascular: RRR, no rub Gastrointestinal: soft, non-tender, positive bowel sounds Musculoskeletal: no edema Dx/Plan - Plan DVT proph w/SCDs 1. Gen weakness/Sepsis due to B/L Aspiration Pneumonia /Staph bacteremia 2. Electrolyte abn (Hyponatremia/Hypokalemia/Hypomagnesmia/hypophosphatemia) 3. CAD 4. HTN/HLD 5. Physical deconditioning 6. Thrombocytopenia 7. Abn LFTs prob due to Sepsis 8. Swallow dysfucntion PLAN: Cont current antibiotics Cont modified diet Cont other meds as below AM labs Await SNF DC Atbx to be confirmed with Dr Teresa Review of Systems - Review of Systems Respiratory: Cough, Dry. negative: Shortness of Breath, Hemoptysis, SOB with Excertion, Pleuritic Pain, Sputum, Wheezing Cardiovascular: negative: chest pain, palpitations, orthopnea, paroxysmal nocturnal dyspnea, edema, light headedness, other Gastrointestinal: negative: Nausea, Vomiting, Abdominal Pain, Diarrhea, Constipation, Melena, Hematochezia, Other - Medications/Allergies Allergies/Adverse Reactions: Allergies Allergy/AdvReac Type Severity Reaction Status Date / Time No Known Drug Allergies Allergy Verified 08/29/18 13:20 Medications: Current Medications Acetaminophen (Tylenol) 500 mg PO Q6H PRN PRN Reason: Fever > 101 Last Admin: 08/31/18 21:14 Dose: 500 mg Albuterol/Ipratropium (Duoneb) 3 ml NEB [id number] PRN PRN Reason: SOB &/or Wheezing Dextrose/Water (Dextrose 50%) 25 gm SLOW IVP PRN PRN PRN Reason: Hypoglycemia Enoxaparin Sodium (Lovenox) 40 mg SC 0900 [facility] Last Admin: 09/03/18 09:08 Dose: 40 mg Glucagon (Glucagon) 1 mg IM PRN PRN PRN Reason: Hypoglycemia Guaifenesin/Dextromethorphan (Robitussin Dm) 15 ml PO Q4H PRN PRN Reason: Cough Dextrose/Water (D5w) 1,000 mls @ 0 mls/hr IV .Q0M PRN PRN Reason: Hypoglycemia Potassium Chloride/Sodium Chloride (Ns 0.9% W/ 40 Meq Kcl) 1,000 mls @ 50 mls/ hr IV .Q20H [facility] Last Admin: 09/03/18 05:44 Dose: 1,000 mls Vancomycin HCl 1.25 gm/ Sodium (Chloride) 250 mls @ 166.667 mls/hr IVPB 1000, 2200 [facility] Last Admin: 09/03/18 19:41 Dose: 250 mls Piperacillin Sod/Tazobactam (Sod 3.375 gm/ Sodium Chloride) 100 mls @ 200 mls/ hr IVPB Q6HR [facility] Last Admin: 09/03/18 17:05 Dose: 100 mls Loperamide HCl (Imodium) 2 mg PO PRN PRN PRN Reason: Diarrhea/Loose Stools Loratadine (Claritin) 10 mg PO DAILYPRN PRN PRN Reason: Sinus Symptoms Miscellaneous Medication (Pharmacy To Dose) 1 each IVPB .VANC/ABX PRN PRN Reason: Pharmacy to dose Ondansetron HCl (Zofran Odt) 4 mg PO Q6H PRN PRN Reason: Nausea/Vomiting Ondansetron HCl (Zofran) 4 mg IVP Q6H PRN PRN Reason: Nausea/Vomiting Last Admin: 08/31/18 21:14 Dose: 4 mg Pantoprazole Sodium (Protonix) 40 mg PO DAILY [facility] Last Admin: 09/03/18 08:02 Dose: 40 mg Saccharomyces Boulardii (Florastor) 250 mg PO DAILY [facility] Last Admin: 09/03/18 08:01 Dose: 250 mg Sodium Chloride (Flush - Normal Saline) 10 ml IVF Q12HR [facility] Last Admin: 09/03/18 19:42 Dose: Not Given Sodium Chloride (Flush - Normal Saline) 10 ml IVF PRN PRN PRN Reason: Saline Flush
[2018-09-04] MEDS: Piperacillin/Tazobactam 3.375 GM in Sodium Chloride 0.9% 100 ML IVPB SCH ×3 (05:08→18:15)
[2018-09-04] MEDS: NS 0.9% w/ 40 MEQ KCL 1,000 ML IV SCH (05:08)
[2018-09-04 06:10] LABS: #Basophils 0.1 thou/uL (0.0-0.2); #Eosinphils 1.1 thou/uL (0.0-0.7); #Lymphocytes 1.1 thou/uL (1.20-3.40); #Monocytes 1.2 thou/uL (0.11-0.59); #Neutrophils 10.8 thou/uL (1.40-6.50); %Basophils 0.4 % (0.0-1.0); %Eosinophils 7.6 % (0.0-10.0); %Monocytes 8.4 % (0.0-10.0); %Neutrophils 75.6 % (42.0-75.0); Hemoglobin 14.5 g/dL (14.0-18.0); Mean Corpuscular HGB CONC 33.9 g/dL (32.0-36.0); Mean Corpuscular Volume 91.5 fL (78.0-98.0); Mean Platelet Volume 7.5 fL (7.4-10.4); Platelet Count 254 thou/uL (130-400); RBC Distribution Width 12.6 % (11.5-14.5); Red Blood Cell (RBC) Count 4.66 mill/uL (4.70-6.10); White Blood Cell (WBC) Count 14.3 thou/uL (4.8-10.8)
[2018-09-04 06:34] LABS: Anion Gap 13 mmol/L (10-20); BUN (Urea Nitrogen) 7 mg/dL (8.4-25.7); Calc. Creatinine Clearance 109 mL/min (70-130); Carbon Dioxide 22 mmol/L (23-31); Chloride 102 mmol/L (98-107); Estimated GFR-MDRD Greater than 90; Glucose 86 mg/dL (83-110); Potassium 3.8 mmol/L (3.5-5.1); Sodium 133 mmol/L (136-145)
[2018-09-04] MEDS: Saccharomyces boulardii 250 MG CAP PO SCH (09:14)
[2018-09-04] MEDS: Enoxaparin Sodium 40 MG/0.4 ML SYRINGE SC SCH (09:14)
[2018-09-04] MEDS: Vancomycin HCl 1.25 GM in Sodium Chloride 0.9% 250 ML 250 ML IVPB SCH (09:15)
--- NOTE | 2018-09-04 11:56 | PRG ---
DATE OF SERVICE: 09/04/2018 SUBJECTIVE: The patient is seen and examined at the bedside. He is asking for more food. He is hungry, but he just finished his breakfast. He says that he could eat more. There was no any unexpected events overnight. OBJECTIVE: VITAL SIGNS: Blood pressure is 156/75, pulse is 77, temperature is 98.4, maximal temperature is 99.1, respiratory rate is 20, and O2 saturation is 95% on room air. HEENT: His head is atraumatic and normocephalic. Eyes are PERRLA. Sclerae are nonicteric. Conjunctivae palish. Oral mucosa is moist. NECK: Supple. LUNGS: Bilateral rales, more on the right than on the left. No wheezing. HEART: S1 and S2 normal. No S3. No S4. ABDOMEN: Soft, nontender. EXTREMITIES: No clubbing, cyanosis, or edema. NEUROLOGIC: He follows my commands, but he is alert and oriented x1. LABORATORY DATA: Showed white count up to 14.3, hemoglobin 14.5, hematocrit 42.6, platelet count 254,000. Sodium of 133, potassium 3.8, chloride 102, CO2 of 22, BUN 7, creatinine 0.72, calcium 9.0, glucose 86. Microbiology, no new findings. IMPRESSION: 1. Sepsis due to bilateral aspiration pneumonia/staphylococcal bacteremia. 2. Generalized weakness. 3. Electrolyte abnormality, corrected. 4. Coronary artery disease, chronic, stable. 5. Hypertension. 6. Hyperlipidemia. 7. Swallow dysfunction. The patient was modified on his diet based on Speech Therapy evaluation, he is on pureed diet with thickened liquids. PLAN: Plan is to continue his current regimen with antibiotics. The diet was modified. We are awaiting for halfway facility placement. He will be switched to oral fluoroquinolones at the time of discharge. Job ID: [id number]
[2018-09-05] MEDS: Piperacillin/Tazobactam 3.375 GM in Sodium Chloride 0.9% 100 ML IVPB SCH ×4 (00:11→18:29)
[2018-09-05 08:29] LABS: #Eosinphils 1.2 thou/uL (0.0-0.7); #Lymphocytes 1.4 thou/uL (1.20-3.40); #Monocytes 1.1 thou/uL (0.11-0.59); #Neutrophils 10.8 thou/uL (1.40-6.50); %Basophils 0.2 % (0.0-1.0); %Eosinophils 8.3 % (0.0-10.0); %Lymphocytes 9.5 % (21.0-51.0); %Monocytes 7.5 % (0.0-10.0); %Neutrophils 74.4 % (42.0-75.0); Hemoglobin 14.7 g/dL (14.0-18.0); Mean Corpuscular HGB CONC 33.1 g/dL (32.0-36.0); Mean Corpuscular Hemoglobin 30.6 pg (27.0-31.0); Mean Corpuscular Volume 92.6 fL (78.0-98.0); Mean Platelet Volume 7.2 fL (7.4-10.4); Platelet Count 274 thou/uL (130-400); RBC Distribution Width 12.6 % (11.5-14.5); Red Blood Cell (RBC) Count 4.79 mill/uL (4.70-6.10); White Blood Cell (WBC) Count 14.5 thou/uL (4.8-10.8)
[2018-09-05] MEDS: Enoxaparin Sodium 40 MG/0.4 ML SYRINGE SC SCH (09:00)
[2018-09-05] MEDS: Saccharomyces boulardii 250 MG CAP PO SCH (09:01)
--- NOTE | 2018-09-05 13:48 | PRG ---
DATE OF SERVICE: 09/05/2018 SUBJECTIVE: The patient is seen and examined at the bedside. He seems to be more lucent today. His answers make more sense than what did yesterday. OBJECTIVE: VITAL SIGNS: Blood pressure is 132/74, pulse is 79, temperature is 98.3, respirations 20, and O2 saturation is 94% on room air. HEENT: His head is atraumatic and normocephalic. Eyes are PERRLA. Sclerae nonicteric. Oral mucosa is moist. NECK: Supple. LUNGS: Breath sounds diminished at both bases. HEART: S1 and S2 normal. No S3. ABDOMEN: Soft and nontender. Bowel sounds are present. No organomegaly. EXTREMITIES: No clubbing, cyanosis, or edema. He shows some muscular weakness in the upper and lower extremities and deconditioning quite significant. LABORATORY DATA: White count of 14.5, hemoglobin 14.7, hematocrit 44.3, platelet count is 274,000. No chemistry this morning. IMPRESSION: 1. Sepsis due to bilateral aspiration pneumonia/staphylococcal bacteremia. 2. Generalized weakness. 3. Electrolyte abnormality, corrected. 4. Coronary artery disease, chronic, stable. 5. Hypertension. 6. Hyperlipidemia. 7. Swallowing dysfunction. The patient's diet is changed to pureed with thickened liquids. PLAN: Plan is to his current regimen, switch him to oral fluoroquinolones at the time of discharge as per Dr. Teresa' recommendation. We are awaiting for the arrangement to be made with correction facility for PT, OT. We will continue those two until the transfer is finalized. Job ID: [id number]
[2018-09-05] MEDS: NS 0.9% w/ 40 MEQ KCL 1,000 ML IV SCH (15:19)
--- NOTE | 2018-09-05 22:30 | PRG ---
DATE OF SERVICE: 09/05/2018 SUBJECTIVE: Mr. Bender is feeling good. He denies any headaches. No shortness of breath. No cough. No chest pain. No abdominal pain or diarrhea. No genitourinary symptoms. OBJECTIVE: VITAL SIGNS: He has been afebrile. He did have a temperature of 100.5 three days ago and now his other vital signs are now remarkable. O2 saturation 95% on room air. GENERAL: Appears in no distress and pleasant. HEENT: Ocular movements conjugate. Oral cavity moist. LUNGS: With bibasilar inspiratory crackles particularly in the right side. HEART: S1 and S2. Regular rate. ABDOMEN: Soft, not distended. MEDICATIONS: He is on; 1. DuoNeb inhalers. 2. Loperamide. 3. Ondansetron. 4. Zosyn. 5. Saccharomyces. 6. Pantoprazole. 7. Enoxaparin. LABORATORY DATA: White cell count is up to 14.5, hemoglobin 14.7, and platelets 274. Creatinine 0.72. C. diff antigen and toxin negative. ASSESSMENT AND DISCUSSION: Hypertension, type 2 diabetes, cognitive dysfunction, coronary artery disease, and cough with abnormal lung findings on CT and chest x-ray and abnormal swallowing study. Again, aspiration pneumonia is the more likely scenario here. His white cell count is trending up, we may have to adjust his antimicrobial therapy to add vancomycin depending on his clinical course and future WBC trends. He did have the Staphylococcus warneri, but I think that represents contamination of the sample tube. Job ID: [id number]
[2018-09-06] MEDS: Piperacillin/Tazobactam 3.375 GM in Sodium Chloride 0.9% 100 ML IVPB SCH ×4 (00:14→17:27)
[2018-09-06 08:08] LABS: #Lymphocytes 1.3 thou/uL (1.20-3.40); #Monocytes 1.2 thou/uL (0.11-0.59); #Neutrophils 9.3 thou/uL (1.40-6.50); %Basophils 0.3 % (0.0-1.0); %Eosinophils 7.9 % (0.0-10.0); %Lymphocytes 10.1 % (21.0-51.0); %Monocytes 9.4 % (0.0-10.0); %Neutrophils 72.4 % (42.0-75.0); Hemoglobin 13.8 g/dL (14.0-18.0); Mean Corpuscular HGB CONC 33.6 g/dL (32.0-36.0); Mean Corpuscular Hemoglobin 30.3 pg (27.0-31.0); Mean Corpuscular Volume 90.3 fL (78.0-98.0); Mean Platelet Volume 6.8 fL (7.4-10.4); Platelet Count 288 thou/uL (130-400); RBC Distribution Width 12.7 % (11.5-14.5); Red Blood Cell (RBC) Count 4.54 mill/uL (4.70-6.10); White Blood Cell (WBC) Count 12.8 thou/uL (4.8-10.8)
[2018-09-06] MEDS: Saccharomyces boulardii 250 MG CAP PO SCH (08:27)
[2018-09-06] MEDS: Enoxaparin Sodium 40 MG/0.4 ML SYRINGE SC SCH (08:27)
[2018-09-06 08:39] LABS: ALT (SGPT) 82 U/L (8-55); AST (SGOT) 48 U/L (5-34); Albumin 3.1 g/dL (3.4-4.8); Alkaline Phosphatase 130 U/L (40-150); Anion Gap 13 mmol/L (10-20); BUN (Urea Nitrogen) 10 mg/dL (8.4-25.7); Bilirubin, Total 0.9 mg/dL (0.2-1.2); Calc. Creatinine Clearance 96 mL/min (70-130); Calcium 8.8 mg/dL (7.8-10.44); Carbon Dioxide 22 mmol/L (23-31); Chloride 105 mmol/L (98-107); Estimated GFR-MDRD Greater than 90; Globulin 3.7 g/dL (2.4-3.5); Glucose 88 mg/dL (83-110); Phosphorus 2.8 mg/dL (2.3-4.7); Potassium 3.9 mmol/L (3.5-5.1); Protein, Total 6.8 g/dL (5.8-8.1); Sodium 136 mmol/L (136-145)
[2018-09-06] MEDS: NS 0.9% w/ 40 MEQ KCL 1,000 ML IV SCH (16:33)
--- NOTE | 2018-09-06 22:52 | PDOC.PN ---
- Subjective Encounter Start Date: 09/06/18 Encounter Start Time: 11:00 Patient seen and examined for Sepsis. Feeling better. Cough improving. No new complaints. No overnight events - Objective Resuscitation Status - Order Detail: 08/29/18 11:15 Resuscitation Status Routine Resuscitation Status: FULL: Full Resuscitation Discussed with: discussed with pt in detail.see note MAR Reviewed: Yes Vital Signs & Weight: Vital Signs (12 hours) Temp Pulse Resp BP Pulse Ox 09/06/18 19:00 98.0 F 74 20 156/78 H 96 Weight Weight 195 lb 1.6 oz I&O: 09/05/18 09/06/18 09/07/18 06:59 06:59 06:59 Intake Total 1910 1560 1255 Output Total 2450 1525 600 Balance -540 35 655 Result Diagrams: 09/06/18 07:50 09/06/18 07:50 Phys Exam - Physical Examination Constitutional: NAD Respiratory: no wheezing Few rales and rhonchi at bases B/L Cardiovascular: RRR, no rub Gastrointestinal: soft, non-tender, positive bowel sounds Musculoskeletal: no edema Neurological: moves all 4 limbs Dx/Plan - Plan DVT proph w/lovenox, DVT proph w/SCDs 1. Gen weakness/Sepsis due to B/L Aspiration Pneumonia /Staph bacteremia 2. Electrolyte abn (Hyponatremia/Hypokalemia/Hypomagnesmia/hypophosphatemia) 3. CAD 4. HTN/HLD 5. Physical deconditioning 6. Thrombocytopenia 7. Abn LFTs prob due to Sepsis 8. Swallow dysfucntion PLAN: WBC improving Cont IV Vancomycin Change Atbx to Augmentin/Doxy in AM Cont other meds as below Stable for dc. Await placement. Review of Systems - Review of Systems Respiratory: negative: Cough, Dry, Shortness of Breath, Hemoptysis, SOB with Excertion, Pleuritic Pain, Sputum, Wheezing Cardiovascular: negative: chest pain, palpitations, orthopnea, paroxysmal nocturnal dyspnea, edema, light headedness, other - Medications/Allergies Allergies/Adverse Reactions: Allergies Allergy/AdvReac Type Severity Reaction Status Date / Time No Known Drug Allergies Allergy Verified 08/29/18 13:20 Medications: Current Medications Acetaminophen (Tylenol) 500 mg PO Q6H PRN PRN Reason: Fever > 101 Last Admin: 08/31/18 21:14 Dose: 500 mg Albuterol/Ipratropium (Duoneb) 3 ml NEB [id number] PRN PRN Reason: SOB &/or Wheezing Dextrose/Water (Dextrose 50%) 25 gm SLOW IVP PRN PRN PRN Reason: Hypoglycemia Enoxaparin Sodium (Lovenox) 40 mg SC 0900 [facility] Last Admin: 09/06/18 08:27 Dose: 40 mg Glucagon (Glucagon) 1 mg IM PRN PRN PRN Reason: Hypoglycemia Guaifenesin/Dextromethorphan (Robitussin Dm) 15 ml PO Q4H PRN PRN Reason: Cough Dextrose/Water (D5w) 1,000 mls @ 0 mls/hr IV .Q0M PRN PRN Reason: Hypoglycemia Potassium Chloride/Sodium Chloride (Ns 0.9% W/ 40 Meq Kcl) 1,000 mls @ 50 mls/ hr IV .Q20H [facility] Last Admin: 09/06/18 16:33 Dose: 1,000 mls Piperacillin Sod/Tazobactam (Sod 3.375 gm/ Sodium Chloride) 100 mls @ 200 mls/ hr IVPB Q6HR [facility] Last Admin: 09/06/18 17:27 Dose: 100 mls Loperamide HCl (Imodium) 2 mg PO PRN PRN PRN Reason: Diarrhea/Loose Stools Loratadine (Claritin) 10 mg PO DAILYPRN PRN PRN Reason: Sinus Symptoms Ondansetron HCl (Zofran Odt) 4 mg PO Q6H PRN PRN Reason: Nausea/Vomiting Ondansetron HCl (Zofran) 4 mg IVP Q6H PRN PRN Reason: Nausea/Vomiting Last Admin: 08/31/18 21:14 Dose: 4 mg Pantoprazole Sodium (Protonix) 40 mg PO DAILY [facility] Last Admin: 09/06/18 08:27 Dose: 40 mg Saccharomyces Boulardii (Florastor) 250 mg PO DAILY [facility] Last Admin: 09/06/18 08:27 Dose: 250 mg Sodium Chloride (Flush - Normal Saline) 10 ml IVF Q12HR [facility] Last Admin: 09/06/18 20:40 Dose: Not Given Sodium Chloride (Flush - Normal Saline) 10 ml IVF PRN PRN PRN Reason: Saline Flush
[2018-09-07] MEDS: Piperacillin/Tazobactam 3.375 GM in Sodium Chloride 0.9% 100 ML IVPB SCH ×3 (00:39→11:10)
[2018-09-07 07:40] VITALS: BP 145/81; TEMP 98.1
[2018-09-07] MEDS ORDERED: Doxycycline 100 MG CAP PO SCH (09:00)
[2018-09-07] MEDS: Enoxaparin Sodium 40 MG/0.4 ML SYRINGE SC SCH (09:06)
[2018-09-07] MEDS: Saccharomyces boulardii 250 MG CAP PO SCH (09:06)
[2018-09-07] MEDS: NS 0.9% w/ 40 MEQ KCL 1,000 ML IV SCH (09:06)
--- NOTE | 2018-09-07 22:27 | DIS ---
DATE OF ADMISSION: 08/28/2018 DATE OF DISCHARGE: 09/07/2018 DISCHARGE DISPOSITION: [facility]. ALLERGIES: NO KNOWN DRUG ALLERGIES. FOLLOWUP: Follow up with Dr. Lalo Green in 1 week. DISCHARGE DIET: Mechanical soft with nectar thick liquid. DISCHARGE MEDICATIONS: 1. Augmentin 400 mg three times daily for 1 week. 2. Doxycycline 100 mg twice daily for 1 week. 3. Protonix 40 mg daily. 4. Florastor 250 mg daily. 5. DuoNeb as needed. 6. Mucinex as needed. The patient was seen and examined on the day of discharge. Denies any new complaints. No chest pain, shortness of breath, palpitations, or fever reported. BRIEF HOSPITAL COURSE: The patient is a 78-year-old man, who presented to the emergency room on August 28, 2018, with cough. Please refer to the history and physical for further details. The patient was admitted to the hospital with a diagnosis of left lower lobe pneumonia. He was started on broad-spectrum antibiotics. He was evaluated by Speech Therapy. He underwent modified barium swallow. His diet has been changed to mechanical soft with nectar thick liquid. Blood culture, one of two at two different occasions showed Staphylococcus warneri sensitive to tetracyclines. Per Infectious Disease, Dr. Teresa, the blood cultures are probably contaminant. WBC count improved to 12.8 from 14.3 without significant left shift. He also had abnormal LFTs that gradually improved. There were several electrolyte abnormalities including hyponatremia, hypokalemia, hypophosphatemia, and hypomagnesemia, which were replaced. He will be discharged to long term facility. FINAL DIAGNOSES: 1. Generalized weakness. 2. Sepsis due to bilateral pneumonia suspected aspiration. 3. Staphylococcus warneri bacteremia. This is probably contamination per Infectious Disease. 4. Coronary artery disease. 5. Hypertension. 6. Hyperlipidemia. 7. Thrombocytopenia. Platelet on the day of discharge is 288. Lowest platelet was 125. 8. Abnormal LFTs secondary to sepsis, improving. 9. Swallow dysfunction. 10. Lactic acidosis due to dehydration. 11. Moderate protein calorie malnutrition. PLAN: Plan of care was discussed with the patient in detail. Total time coordinating the discharge with this patient was 38 minutes. Job ID: [id number]
== END 2018-09-07 16:19 | DRG 871 ==
LOC: ERS 17:14 → T4-B 17:55
PROVIDERS: ADMIT Family Medicine; ATTEND Family Medicine
DX: A41.2 Sepsis due to unspecified staphylococcus (principal); J69.0 Pneumonitis due to inhalation of food and vomit; E87.1 Hypo-osmolality and hyponatremia; E44.0 Moderate protein-calorie malnutrition; I25.10 Atherosclerotic heart disease of native coronary artery without angina pectoris; E78.5 Hyperlipidemia, unspecified; I10 Essential (primary) hypertension; E11.65 Type 2 diabetes mellitus with hyperglycemia; R80.9 Proteinuria, unspecified; E87.6 Hypokalemia; E83.42 Hypomagnesemia; E83.39 Other disorders of phosphorus metabolism; R19.7 Diarrhea, unspecified; D69.6 Thrombocytopenia, unspecified; R13.13 Dysphagia, pharyngeal phase; E86.0 Dehydration; Z68.28 Body mass index [BMI] 28.0-28.9, adult; Z95.1 Presence of aortocoronary bypass graft
CPT/HCPCS: 36415; 36416; 71045; 74230; 80048; 80053; 80076; 80202; 83036; 83735; 84100; 85007; 85025; 85027; 85610; 85730; 87077; 87149; 87324; 87328; 87329; 87449; 87633; 87798; 87899; 90471; 90662; 90670; 93306; 96365; 96367; G0008; G0009; J0456; J0696; J1650; J1956; J2405; J2543; J3370; J3475; J3480; J7050